=== PATIENT | female | born 1950 | race Caucasian/White ===

== ENCOUNTER 2018-03-04 18:52 | Inpatient (IN) | payer MEDICARE ==
[2018-03-04] MEDS ORDERED: NS 0.9% 1000 ML* 2,000 ML IV ONE (19:06)
[2018-03-04] MEDS ORDERED: Diltiazem IV* 5 MG/ML 5 ML VIAL (for loading dose/IV Push) (25 MG) IV SLOW PU ONE ×2 (19:10→20:59)
--- NOTE | 2018-03-04 19:13 | ED ---
Palpitations / Dysrhythmia - HPI Summary HPI Summary: This pt is a 67 y/o female, accompanied by her daughter, presenting to [facility] via EMS for sudden onset of palpitations. Pt's daughter is a nurse. Daughter reports her sister called reporting pt was unresponsive in a recliner. Pt reports she was in the recliner and started getting palpitations and became diaphoretic. Upon arriving to pt's home, daughter states pt was pale, diaphoretic, with BP of 79/50, and O2 sat of 86%. Daughter denies head strike. Pt additionally reports dizziness upon standing up. Denies dehydration. Denies chest pain, fever, nausea, vomiting, headache. Pt notes hx of rapid heart rate in the past without a diagnosis. She has seen a android programmer in [place], [place] where she had an echocardiogram. Denies hx of afib or MD. PMHx includes heart murmur, HTN. Her PCP is Dr. Morse. Vital signs while in the room at 19:05: HR is 159 bpm, BP is 117/89, O2 sat is 92% on room air. - History of Current Complaint Chief Complaint: EDDysrhythmPalp Time Seen by Provider: 03/04/18 19:02 Hx Obtained From: Patient, Family/Director Of Operations For Therapy - Daughter Onset/Duration: Sudden Onset, Still Present Timing: Constant Severity Currently: Moderate Character: Fast Aggravating: Nothing Alleviating: Nothing Associated Signs & Symptoms: Dizzy Related History: Similar Episode/Dx as - a couple of years ago but without a diagnosis - Allergy/Home Medications Allergies/Adverse Reactions: Allergies Allergy/AdvReac Type Severity Reaction Status Date / Time No Known Allergies Allergy Verified 12/15/15 14:06 Home Medications: Home Medications Cholecalciferol (Vitamin D3) [Natural Vitamin D-3] 5,000 unit PO DAILY 03/04/18 [History Confirmed 03/04/18] Hydrocodone/Acetaminophen [Hydrocodone-Acetamin 5-325 mg] 1 tab PO Q6H PRN 03/04 [History Confirmed 03/04/18] L.acidoph,Paracasei, B.lactis [Probiotic] 1 each PO DAILY 03/04/18 [History Confirmed 03/04/18] Meloxicam [Mobic] 15 mg PO DAILY 03/04/18 [History Confirmed 03/04/18] Metoprolol Succinate 100 mg PO DAILY 03/04/18 [History Confirmed 03/04/18] Metoprolol Succinate [Metoprolol Succinate ER] 25 mg PO DAILY 03/04/18 [History Confirmed 03/04/18] Mv-Mn/Folic Acid/Calcium/Vit K [Women's 50 Plus Daily Formula] 1 each PO DAILY 03/04/18 [History Confirmed 03/04/18] amLODIPine TAB* [Norvasc 5 mg TAB*] 5 mg PO DAILY 03/04/18 [History Confirmed ] PMH/Surg Hx/FS Hx/Imm Hx Endocrine/Hematology History: Denies: Hx Diabetes, Hx Thyroid Disease Cardiovascular History: Reports: Hx Hypertension, Other Cardiovascular Problems/ Disorders - heart murmur Denies: Hx Atrial Fibrillation, Hx Congestive Heart Failure, Hx Deep Vein Thrombosis, Hx Myocardial Infarction, Hx Pacemaker/ICD Respiratory History: Reports: Hx Asthma - She states that she has problems with allergies and asthma. On no Rx. Denies: Hx Chronic Obstructive Pulmonary Disease (COPD), Hx Lung Cancer, Hx Pneumonia, Hx Pulmonary Embolism GI History: Denies: Hx Gall Bladder Disease, Hx Gastrointestinal Bleed, Hx Ulcer, Hx Urosepsis History: Denies: Hx Kidney Stones, Hx Renal Disease Neurological History: Denies: Hx Dementia, Hx Migraine, Hx Seizures, Hx Transient Ischemic Attacks (TIA) Psychiatric History: Denies: Hx Anxiety, Hx Depression, Hx Schizophrenia, Hx Bipolar Disorder - Surgical History Surgery Procedure, Year, and Place: bilat knee replacements left elbow replacement toe fusion Infectious Disease History: No Infectious Disease History: Denies: Hx Clostridium Difficile, Hx Hepatitis, Hx Human Immunodeficiency Virus (HIV), Hx of Known/Suspected MRSA, Hx Shingles, Hx Tuberculosis, Hx Known/ Suspected VRE, Hx Known/Suspected VRSA, History Other Infectious Disease, Traveled Outside the [place] in Last 30 Days - Family History Known Family History: Positive: Hypertension, Diabetes - Social History Alcohol Use: Rare Substance Use Type: Reports: None Smoking Status (MU): Never Smoked Tobacco Review of Systems Constitutional: Other - Pale Positive: Fatigue, Skin Diaphoresis. Negative: Fever, Chills Positive: Palpitations. Negative: Chest Pain Negative: Vomiting, Nausea Neurological: Other - POS: dizziness Negative: Headache All Other Systems Reviewed And Are Negative: Yes Physical Exam - Summary Physical Exam Summary: Appearance: Well-appearing, moderate pain distress, well-nourished Skin: Warm, color reflects adequate perfusion, dry Head: Normal Head/Face inspection, atraumatic Eyes: Conjunctiva clear ENT: Normal inspection Neck: Supple, no nodes, no JVD Respiratory: Lungs clear, normal breath sounds, no respiratory distress Cardio: Tachycardic, systolic heart murmur on the base, pulses normal, brisk capillary refill Abdomen: Soft, nontender Bowel sounds: Present Musculoskeletal: Strength Intact/ROM intact, no calf tenderness, no edema. Psychological: Normal Neuro: Alert, muscle tone normal, no focal deficit Triage Information Reviewed: Yes Vital Signs On Initial Exam: Initial Vitals Temp Pulse Resp BP Pulse Ox 97.7 F 140 18 117/89 95 03/04/18 18:57 03/04/18 18:57 03/04/18 18:57 03/04/18 18:57 03/04/18 18:57 Vital Signs Reviewed: Yes - Lolly Coma Scale Best Eye Response: 4 - Spontaneous Best Motor Response: 6 - Obeys Commands Best Verbal Response: 5 - Oriented Coma Scale Total: 15 Diagnostics - Vital Signs Vital Signs Temp Pulse Resp BP Pulse Ox 03/04/18 18:57 97.7 F 140 18 117/89 95 - Laboratory Result Diagrams: 03/04/18 19:31 03/04/18 21:39 Lab Statement: Any lab studies that have been ordered have been reviewed, and results considered in the medical decision making process. - Radiology Chest XR Xray Interpretation: Positive (See Comments) - CHF Radiology Interpretation Completed By: ED Physician - CT Brain CT CT Interpretation: No Acute Changes - IMPRESSION: No acute intracranial pathology. Dr. Hagen has reviewed this radiology report. CT Interpretation Completed By: Radiologist Chest CTA CT Interpretation: Positive (See Comments) - IMPRESSION: 1. Diffuse bialteral groundglass and airspace opacities throughout all loes along with interlobular septal thickening. This addition to small bilateral pleural effusions, findings could represent pulmonary edema. Superimpose infectious process such as pneumonia cannot be excluded. 2. No CTA evidence of pulmonary embolism. Dr. Hagen has reviewed this report. CT Interpretation Completed By: Radiologist - EKG 18:54 Cardiac Rate: Tachycardia - at 153 bpm EKG Rhythm: Atrial Fibrillation ST Segment: Non-Specific EKG Interpretation: Nml IV CT, nml QTc, nml axis. EKG Comparison: Other - no prior to compare Re-Evaluation - Re-Evaluation First Eval Re-Evaluation Time: 19:11 Change: Unchanged Comment: HR is 153 bpm, BP is 109/63, O2 sat is 98% on 2L NC of O2. Second Eval Re-Evaluation Time: 20:01 Change: Unchanged Comment: HR is 139 bpm, BP is 103/87, O2 sat is 97% on 2L of NC O2. She denies any chest pain. Course/Dx - Course Course Of Treatment: Pt medications reviewed this visit. Pt is a 67 y/o female who presents to the ED for sudden onset of palpitations. Brain CT is negative. Chest XR read by me shows CHF. EKG shows rapid afib at 153 bpm with no prior to compare. Labs show D-dimer of 463, BNP of 275. CTA chest reveals 1. Diffuse bilateral groundglass and airspace opacities throughout all lobes along with interlobular septal thickening. This addition to small bilateral pleural effusions, findings could represent pulmonary edema. Superimpose infectious process such as pneumonia cannot be excluded. 2. No CTA evidence of pulmonary embolism. I discussed pt care with Dr. Reid, hospitalist, who accepted the pt for admission. [20:49] Dr. Reid is aware of lactic acid of 2.5. - Diagnoses Provider Diagnoses: CHF (congestive heart failure), Rapid atrial fibrillation - Physician Notifications Discussed Care Of Patient With: Constance Reid - hospitalist Time Discussed With Above Provider: 20:22 Instructed by Provider To: Admit As Inpatient - Critical Care Time Critical Care Time: 30-74 min - 30 mins Discharge - Sign-Out/Discharge Documenting (check all that apply): Patient Departure - Admit to [facility] [place] - Discharge Plan Condition: Stable Disposition: ADMITTED TO [facility] - Billing Disposition and Condition Condition: STABLE Disposition: Admitted to [facility] - Attestation Statements Document Initiated by Scribe: Yes Documenting Scribe: Nydia Fernandez Provider For Whom Scribe is Documenting (Include Credential): Dr. Veronica Hagen MD Scribe Attestation: Nydia Cohen, scribed for Dr. Veronica Hagen MD on 03/05/18 at 0429.
[2018-03-04 19:50] LABS: INR 0.9 (0.77-1.02)
[2018-03-04 19:59] LABS: EGFR Non-African American 53.6 (>60)
--- NOTE | 2018-03-04 19:59 | RAD ---
EXAM: CT Head Without Intravenous Contrast CLINICAL HISTORY: 67 years old, female; Signs and symptoms; Syncope and collapse; Additional info: Syncope, heart murmur, rapid afib TECHNIQUE: Axial computed tomography images of the head/brain without intravenous contrast. All CT scans at this facility use at least one of these dose optimization techniques: automated exposure control; mA and/or kV adjustment per patient size (includes targeted exams where dose is matched to clinical indication); or iterative reconstruction. COMPARISON: No relevant prior studies available. FINDINGS: Brain: Nonspecific hypodensities of the periventricular and deep subcortical white matter, most likely secondary to chronic small vessel ischemic change. No intracranial hemorrhage or extra-axial fluid collection. No evidence of mass effect or midline shift. [place]-white matter differentiation is normal. Ventricles: Prominence of the ventricles and sulci, most likely attributed to parenchymal volume loss. Bones/joints: Unremarkable. No acute fracture. Soft tissues: Unremarkable. Sinuses: Unremarkable as visualized. No acute sinusitis. Mastoid air cells: Unremarkable as visualized. No mastoid effusion. IMPRESSION: No acute intracranial pathology.
[2018-03-04] MEDS ORDERED: Diltiazem DRIP* 100 MG/100 ML ADDV.BAG IVPB ONE (20:03)
[2018-03-04 20:15] LABS: ABS Basophils 0.1 10^3/ul (0-0.2); ABS Eosinophils 0.1 10^3/ul (0-0.6); ABS Lymphocytes 1.9 10^3/ul (1.0-4.8); ABS Monocytes 0.6 10^3/ul (0-0.8); ABS Neutrophils 8.1 10^3/ul (1.5-7.7); ABS Nucleated RBC 0 10^3/ul; Eosinophil % 0.6 % (0-6); Hematocrit 45 % (35-47); Hemoglobin 14.9 g/dl (12.0-16.0); Lymphocyte % 18.1 % (25-47); Mean Corpuscular HGB Conc 33 g/dl (31-36); Mean Corpuscular Hemoglobin 28 pg (27-31); Mean Corpuscular Volume 82 fL (80-97); Nucleated Red Blood Cells % 0.3; Red Blood Count 5.43 10^6/ul (4.00-5.40); Red Cell Distribution Width 16 % (10.5-15); White Blood Count 10.7 10^3/ul (3.5-10.8)
[2018-03-04] MEDS ORDERED: Iodixanol* (CONTRAST) 320 MG/ML 100 ML SDV IV ONE (20:15)
[2018-03-04] MEDS ORDERED: Furosemide IV* 10 MG/ML 10 ML VIAL (100 MG) IV ONE (20:48)
[2018-03-04] MEDS ORDERED: Nitroglycerin 2% OINT* 1 GM PAK TOPICAL ONE (20:48)
--- NOTE | 2018-03-04 20:53 | RAD ---
EXAM: CT Angiography Chest With Intravenous Contrast CLINICAL HISTORY: 67 years old, female; Pain; Chest pain; Additional info: New onset rapid afib, elevated d dimer TECHNIQUE: Axial computed tomographic angiography images of the chest with intravenous contrast using pulmonary embolism protocol. All CT scans at this facility use at least one of these dose optimization techniques: automated exposure control; mA and/or kV adjustment per patient size (includes targeted exams where dose is matched to clinical indication); or iterative reconstruction. MIP reconstructed images were created and reviewed. Coronal and sagittal reformatted images were created and reviewed. CONTRAST: 81 mL of visi 320 administered intravenously. COMPARISON: No relevant prior studies available. FINDINGS: Pulmonary arteries: Unremarkable. No pulmonary embolism. Aorta: No acute findings. No thoracic aortic aneurysm. Lungs: Diffuse bilateral groundglass and airspace opacities throughout all lobes. Interlobular septal thickening is present, predominantly upper lobes. Pleural space: Small bilateral pleural effusions. No pneumothorax. Heart: Mild cardiomegaly. Mitral annular calcifications. No significant pericardial effusion. No evidence of RV dysfunction. Bones/joints: No acute fracture. No dislocation. Soft tissues: Unremarkable. Lymph nodes: Unremarkable. No enlarged lymph nodes. IMPRESSION: 1. Diffuse bilateral groundglass and airspace opacities throughout all lobes along with interlobular septal thickening. This addition to small bilateral pleural effusions, findings could represent pulmonary edema. Superimposed infectious process such as pneumonia cannot be excluded. 2. No CTA evidence of pulmonary embolism.
[2018-03-04] MEDS: Diltiazem IV VIAL* 125 MG in NS 0.9% 100 ML* 100 ML IV ONE (20:54)
[2018-03-04] MEDS ORDERED: Al Hydrox/Mg Hydrox/Simet LIQ* 30 ML UDC PO PRN (20:55)
[2018-03-04] MEDS ORDERED: Docusate CAP* 100 MG PO PRN (20:55)
[2018-03-04] MEDS ORDERED: Acetaminophen TAB* 325 MG PO PRN (20:55)
[2018-03-04] MEDS ORDERED: Senna TAB PO PRN (20:55)
[2018-03-04] MEDS ORDERED: Ondansetron INJ* 2 MG/ML VIAL IV PRN (20:55)
[2018-03-04] MEDS ORDERED: LORazepam INJ* 2 MG/ML 1 ML VIAL ONE (20:59)
[2018-03-04] MEDS ORDERED: LORazepam INJ* 2 MG/ML 1 ML VIAL IV PUSH ONE (20:59)
[2018-03-04] MEDS ORDERED: HYDROcodone/ACETAMIN 5-325 MG* 1 TAB PO PRN (21:04)
[2018-03-04] MEDS ORDERED: Albuterol HFA INHALER* 8 gm MDI INH PRN (21:14)
[2018-03-04 21:38] LABS: Urine Appearance Cloudy; Urine Blood 2+ (Negative); Urine Color Yellow; Urine Ketones Negative (Negative); Urine Protein Negative (Negative); Urine Red Blood Cell 3+(>10/hpf) (Absent); Urine Specific Gravity 1.053 (1.010-1.030); Urine Urobilinogen Negative (Negative); Urine White Blood Cell 2+(11-20/hpf) (Absent)
--- NOTE | 2018-03-04 23:06 | HP ---
CC: Dr. Feliz Morse* HISTORY AND PHYSICAL: DATE OF ADMISSION: 03/04/18 TIME OF EVALUATION: 1999 PRIMARY CARE PHYSICIAN: Feliz Morse MD CHIEF COMPLAINT: Palpitations. HISTORY OF PRESENT ILLNESS: This is a 67-year-old female with past medical history of hypertension, morbid obesity, who presents to the emergency room with having onset of palpitations around 1700. She states few years ago she had a similar episode with palpitations where they subsided on their own. At that time she went to bed and she felt fine. She has seen a mechanical maintenance foreman for preop evaluation for her knee surgery in the past and she said she had an echocardiogram done several years ago and that was unremarkable. She denies any chest pain. No shortness of breath prior to arrival. Her daughter at the bedside states she has gained about 10 pounds over the past 6 months. She does snore at night and thinks that she does have sleep apnea though she has never been tested. She drinks one cup of coffee a day. She denies any fever. No respiratory symptoms. No nausea, vomiting. She has had one episode of diarrhea in the setting of her IBS. No abdominal discomfort. She states she does try to exercise where she walks and does gets fatigued rather easily. She has chronic lower extremity swelling from her arthritis and her knee surgery in the past. In the emergency room, the patient had labs and imaging. She had 1 L of fluid, went for CTA of the chest and came back, and she was acutely short of breath, coughing, which was new for her. She sounded rhonchorous and appeared to be in acute decompensated heart failure. In the emergency room, the patient was started on diltiazem 25 mg bolus, started on a drip and referred to the hospitalist service for further evaluation, otherwise review of systems is negative. PAST MEDICAL HISTORY: 1. Hypertension, followed by Dr. Murry in [place], Cardiology. 2. Rheumatoid arthritis. 3. Degenerative disk disease. 4. History of bilateral knee surgery. 5. Irritable bowel syndrome. 6. Asthma. MEDICATIONS: 1. Amlodipine 5 mg daily. 2. Spironolactone/hydrochlorothiazide 25-25 mg daily. 3. Women's multivitamin daily. 4. Metoprolol succinate 25 mg p.o. in the morning. 5. Mobic 50 mg daily. 6. Probiotic 1 daily. 7. Erick 5/325 one every 6 hours as needed. 8. Vitamin D3 5000 units daily. ALLERGIES: No known drug allergies. FAMILY HISTORY: Mother from emphysema in the 60s. Father in the 70s with cancer. SOCIAL HISTORY: The patient lives with her daughter. She is independently with her ADLs. She does have a walker, but does not use it. No history of tobacco, alcohol, or illicit drug use. Her healthcare proxy is her daughter, Audrey. CODE STATUS: Full code. REVIEW OF SYSTEMS: A 14-point review of systems reviewed and as mentioned in the HPI, otherwise negative. PHYSICAL EXAMINATION GENERAL: Patient acutely short of breath with conversational dyspnea with a dry persistent cough. VITAL SIGNS: Temp 97.7, pulse rate 140, respiratory rate 30, oxygen saturation 95% on 2 L of O2. Blood pressure of 181/149. HEENT: Head: Normocephalic. Pupils are equal and reactive. Oropharynx: Mucous membranes moist. NECK: Supple. No lymphadenopathy. RESPIRATORY: Coarse rhonchi bilateral was audible. CARDIAC: Irregularly irregular. Rapid rhythm with a systolic murmur most prominent at the left sternal base. ABDOMEN: Positive bowel sounds, soft, nontender. Morbidly obese. EXTREMITIES: Trace pretibial edema, +1 DPs. NEUROLOGIC: Alert and oriented x3. No gross focal neurologic deficits. LABORATORY DATA: White count 10.7, hemoglobin 14.9, hematocrit 45, platelets unable to perform accurate count. Coags: INR 0.9, PTT 35, D-dimer is 463. Sodium 135, potassium not calculated. Chloride 102, bicarb 23, BUN 20, creatinine 1.03, glucose 133, lactic acid 2.5, magnesium is 2. BNP is 275. Troponin 0.01. TSH is 1.92. RADIOGRAPHIC DATA: Wet read, chest x-ray looks like prominent interstitial pulmonary edema markings. EKG shows rapid atrial fibrillation with a rate of [address] Brain CT shows no acute intracranial pathology. Chest CTA, diffuse bilateral ground glass and airspace opacities throughout all lobes along with intralobular septal thickening. This addition to small bilateral pleural effusions. Findings could represent pulmonary edema superimposed infectious process such as pneumonia could not be excluded. No CT evidence for pulmonary embolism. ASSESSMENT: This is a 67-year-old female with past medical history of morbid obesity, hypertension, presents to the emergency room with palpitations, found to be in rapid atrial fibrillation, subsequently went into acute decompensated heart failure. 1. Rapid atrial fibrillation. The etiology could be acute decompensated heart failure. She may have underlying obstructive sleep apnea. No chest pain. Her troponin was negative initially. She did respond initially to the diltiazem bolus. We are going to give another small bolus and place her on the drip. The plan is to put on anticoagulation, we will start her on Eliquis. We will keep her n.p.o. after midnight and possible cardioversion. We will repeat her potassium to make sure her potassium is normal level. If she does not have a cardioversion with transesophageal echocardiogram, recommend ordering a transthoracic echo to evaluate. 2. Acute decompensated heart failure. The patient's initial chest x-ray did show pulmonary edema. She did get fluid in the emergency room and subsequently went into acute decompensated heart failure. The patient was given diltiazem drip. We tried her on CPAP, but is very anxious, gave her a small dose of Ativan, nitro paste and Lasix [address] her on the ICU for further monitoring and follow up with further cardiology recommendations. 3. Chronic medical problems: Hypertension. I am going to hold her amlodipine, spironolactone, hydrochlorothiazide. We will restart metoprolol in the morning if her blood pressures allow in the setting of being on the diltiazem drip. 4. Rheumatoid arthritis: We will hold her Mobic for now in the setting of being started on Eliquis. 5. Asthma: We will place her on albuterol inhaler as needed. No acute exacerbation at this time. 6. FEN: Heart healthy, low salt diet. N.p.o. after midnight. 7. DVT prophylaxis: The patient scores high risk. She will be put on Eliquis. 8. Code status: Full code. PATIENT TIME: Greater than 60 minutes was spent during the history and physical , more than half the time spent in direct patient contact and critical care time. [id number]/CPS #: [id number] MTDD
[2018-03-04] MEDS: Apixaban* 5 MG TAB PO SCH (23:42)
[2018-03-05] MEDS ORDERED: Digoxin IV* 0.5 MG/2 ML AMP (0.25 MG/ML) IV SLOW PU ONE (00:19)
[2018-03-05] MEDS: Diltiazem IV VIAL* 125 MG in NS 0.9% 100 ML* 100 ML IV ONE (05:55)
[2018-03-05 06:29] LABS: ABS Basophils 0 10^3/ul (0-0.2); ABS Eosinophils 0 10^3/ul (0-0.6); ABS Lymphocytes 1.6 10^3/ul (1.0-4.8); ABS Monocytes 0.5 10^3/ul (0-0.8); ABS Neutrophils 8.3 10^3/ul (1.5-7.7); ABS Nucleated RBC 0 10^3/ul; Eosinophil % 0.1 % (0-6); Hematocrit 44 % (35-47); Hemoglobin 14.4 g/dl (12.0-16.0); Lymphocyte % 14.9 % (25-47); Mean Corpuscular HGB Conc 33 g/dl (31-36); Mean Corpuscular Hemoglobin 27 pg (27-31); Mean Corpuscular Volume 82 fL (80-97); Nucleated Red Blood Cells % 0.1; Red Blood Count 5.34 10^6/ul (4.00-5.40); Red Cell Distribution Width 16 % (10.5-15); White Blood Count 10.5 10^3/ul (3.5-10.8)
[2018-03-05 06:55] LABS: EGFR Non-African American 52.4 (>60)
[2018-03-05 07:01] LABS: Platelet Count Platelets clumped. 10^3/ul (150-450)
[2018-03-05] MEDS: Apixaban* 5 MG TAB PO SCH ×2 (10:55→21:33)
[2018-03-05] MEDS: Metoprolol Succinate XL TAB* 25 MG PO SCH ×2 (10:59→14:42)
[2018-03-05] MEDS: Metoprolol Succinate XL TAB* 100 MG PO SCH ×2 (11:00→14:42)
--- NOTE | 2018-03-05 11:13 | PN ---
Subjective Date of Service: 03/05/18 Interval History: Patient seen and examined at bedside. Denies fever, chills, shortness of breath , chest discomfort, N/V/D. Pt states that she continues to have intermittent palpitations. She feels like she may have had an episode of afib a few years ago that resolved on its own. Family History: Unchanged from Admission Social History: Unchanged from Admission Past Medical History: Unchanged from Admission Objective Active Medications: Acetaminophen (Tylenol Tab*) 650 mg PO Q4H PRN Reason: FEVER/PAIN Hydrocodone Bitart/Acetaminophen ([place] 5-325 Tab*) 1 tab PO Q6H PRN Reason: PAIN Al Hydrox/Mg Hydrox/Simethicone (Maalox Plus*) 30 ml PO Q6H PRN Reason: INDIGESTION Albuterol (Ventolin Hfa Inhaler*) 2 puff INH Q4H PRN Reason: SOB/WHEEZING Apixaban (Eliquis*) 5 mg PO BID SHANNON Docusate Sodium (Colace Cap*) 100 mg PO BID PRN Reason: CONSTIPATION Diltiazem HCl 125 mg/ Sodium (Chloride) 125 mls @ 5 mls/hr IV ED ONCE ONE; Protocol Stop: 03/05/18 21:59 Metoprolol Succinate (Toprol Xl Tab*) 25 mg PO DAILY SHANNON Metoprolol Succinate (Toprol Xl Tab*) 100 mg PO DAILY SHANNON Ondansetron HCl (Zofran Inj*) 4 mg IV Q4H PRN Reason: NAUSEA/VOMITING Senna (Senokot Tab*) 1 tab PO BID PRN Reason: CONSTIPATION Vital Signs - 8 hr 03/05/18 03/05/18 03/05/18 02:14 02:15 02:18 Temperature Pulse Rate 104 122 129 Respiratory 28 22 28 Rate Blood Pressure 156/129 168/141 102/83 (mmHg) O2 Sat by Pulse 96 96 96 Oximetry 03/05/18 03/05/18 03/05/18 02:30 02:45 03:00 Temperature Pulse Rate 126 120 117 Respiratory 40 27 28 Rate Blood Pressure 123/98 120/108 (mmHg) O2 Sat by Pulse 97 97 96 Oximetry 03/05/18 03/05/18 03/05/18 03:01 03:15 03:32 Temperature Pulse Rate 110 116 119 Respiratory 24 32 34 Rate Blood Pressure 109/81 144/123 98/83 (mmHg) O2 Sat by Pulse 95 97 96 Oximetry 03/05/18 03/05/18 03/05/18 03:45 03:53 04:00 Temperature 96.9 F Pulse Rate 131 118 Respiratory 21 21 Rate Blood Pressure 96/76 106/81 (mmHg) O2 Sat by Pulse 96 97 Oximetry 03/05/18 03/05/18 03/05/18 04:15 04:30 04:46 Temperature Pulse Rate 122 104 107 Respiratory 23 21 26 Rate Blood Pressure 97/74 94/71 88/60 (mmHg) O2 Sat by Pulse 96 95 96 Oximetry 03/05/18 03/05/18 03/05/18 05:00 05:15 05:31 Temperature Pulse Rate 114 102 109 Respiratory 23 24 28 Rate Blood Pressure 105/77 109/80 98/72 (mmHg) O2 Sat by Pulse 96 96 96 Oximetry 03/05/18 03/05/18 03/05/18 05:33 05:45 06:00 Temperature Pulse Rate 108 107 116 Respiratory 30 27 34 Rate Blood Pressure 111/87 87/67 106/89 (mmHg) O2 Sat by Pulse 96 96 96 Oximetry 03/05/18 03/05/18 03/05/18 06:16 06:31 06:45 Temperature Pulse Rate 131 117 101 Respiratory 27 30 25 Rate Blood Pressure 95/80 97/84 71/62 (mmHg) O2 Sat by Pulse 94 93 94 Oximetry 03/05/18 03/05/18 03/05/18 06:54 07:00 07:02 Temperature Pulse Rate 102 87 105 Respiratory 41 25 21 Rate Blood Pressure 99/71 81/64 (mmHg) O2 Sat by Pulse 94 95 96 Oximetry 03/05/18 03/05/18 03/05/18 07:16 07:43 07:46 Temperature Pulse Rate 113 115 114 Respiratory 20 29 30 Rate Blood Pressure 94/69 131/105 106/68 (mmHg) O2 Sat by Pulse 95 96 96 Oximetry 03/05/18 03/05/18 03/05/18 08:00 08:16 08:33 Temperature 97 F Pulse Rate 106 125 120 Respiratory 21 19 31 Rate Blood Pressure 118/84 112/99 86/65 (mmHg) O2 Sat by Pulse 97 97 96 Oximetry 03/05/18 03/05/18 03/05/18 08:45 09:00 09:16 Temperature Pulse Rate 136 120 127 Respiratory 19 28 30 Rate Blood Pressure 90/72 111/64 100/69 (mmHg) O2 Sat by Pulse 96 96 96 Oximetry Oxygen Devices in Use Now: Nasal Cannula - 2L Appearance: NAD, sitting up in bed Ears/Nose/Mouth/Throat: Mucous Membranes Moist Respiratory: Symmetrical Chest Expansion and Respiratory Effort, Clear to Auscultation Cardiovascular: - - Heart rate irregular. Systolic murmur heard best at the left sternal border Abdominal: NL Sounds; No Tenderness; No Distention Extremities: No Edema Skin: No Rash or Ulcers Neurological: Alert and Oriented x 3, NL Muscle Strength and Tone Lines/Tubes/Other Access: Clean, Dry and Intact Peripheral IV - site benign Nutrition: Taking PO's Result Diagrams: 03/05/18 05:34 03/05/18 05:34 Microbiology and Other Data: Microbiology 03/04/18 23:00 Nasal Screen MRSA (PCR) - Final Nasal Mrsa Not Detected Assess/Plan/Problems-Billing Assessment: Ms. Yost is a 67 yo female with PMH significant for morbid obesity, HTN, RA, and asthma who presented to the emergency room with complaints of palpitations and was found to be in rapid afib and went into acute decompenstated HF. - Patient Problems (1) Atrial fibrillation with RVR Code(s): I48.91 - UNSPECIFIED ATRIAL FIBRILLATION SNOMED Code(s): 929378451106952 Comment: - HR continues to be 100-130's - TTE pending - Cardiology consult, input appreciated - Plan for cardioversion later today - Continue cardizem gtt and eliquis - Resume metoprolol after cardioversion (2) Acute decompensated heart failure Code(s): I50.9 - HEART FAILURE, UNSPECIFIED SNOMED Code(s): 02893279 Comment: - Improving - Cardiology consult, input appreciated (3) HTN (hypertension) Code(s): I10 - ESSENTIAL (PRIMARY) HYPERTENSION SNOMED Code(s): 26789656 Comment: - SBP 80-120's - Continue to hold amlodipine, HCTZ, and spironolactone - Continue metoprolol (4) Rheumatoid arthritis Code(s): M06.9 - RHEUMATOID ARTHRITIS, UNSPECIFIED SNOMED Code(s): 50467721 Comment: - Hold mobic (5) Asthma Code(s): J45.909 - UNSPECIFIED ASTHMA, UNCOMPLICATED SNOMED Code(s): 521648361 Comment: - No signs of acute exacerbation at this time - Continue albuterol PRN (6) DVT prophylaxis Code(s): CPD8411 - SNOMED Code(s): 948322051 Comment: - Eliquis (7) Full code status Code(s): Z78.9 - OTHER SPECIFIED HEALTH STATUS SNOMED Code(s): 701389622 Status and Disposition: Inpatient. Discharge to home when medically stable, Pt is awaiting cardioversion later today. Attending: Heather Mendoza
[2018-03-05] MEDS ORDERED: Naloxone* 0.4 MG/ML 1 ML VIAL ONE (12:04)
[2018-03-05] MEDS ORDERED: Flumazenil* 0.1 MG/ML 5 ML MDV ONE (12:04)
[2018-03-05] MEDS ORDERED: fentaNYL* 50 MCG/ML 2 ML VIAL (100 MCG VIAL) ONE (12:04)
[2018-03-05] MEDS ORDERED: Midazolam* 1 MG/ML 10 ML VIAL (10 MG) ONE (12:05)
[2018-03-05] MEDS ORDERED: Amiodarone 150 MG IVPREMIX* 150 MG/100 ML BAG IV ONE (12:29)
[2018-03-05] MEDS ORDERED: Amiodarone 360 MG IVPREMIX* 360 MG/200 ML BAG IV ONE (12:30)
--- NOTE | 2018-03-05 16:01 | ECHO ---
Amended Report Patient: DEVIN BREWER [facility] [place] Rec#: [id number] : 1950 Date: 03/05/2018 Age: 67y Height: 150 cm / 59.1 in Weight: 94.9 kg / 209.2 lbs Sex: F BSA: 1.9 Room#: ICU 11 Admit Date#: 03/04/2018 Type: Inpatient Referring: Edin Gupta MD Reading: Edin Gupta MD Machine Adjuster: Adri Clemens RN RDCS CC: Feliz Morse MD Transthoracic Echocardiogram Indication: Atrial fibrillation, murmur BP: 100/69 HR: 118 Rhythm: A-Fib Findings History: HTN, asthma, RA, morbid obesity Technical Comments: The study is technically limited due to patient body habitus. Left Ventricle: The left ventricular chamber size is decreased. Moderate to severe concentric left ventricular hypertrophy is observed. There is evidence of a hypertrophic cardiomyopathy. There is turbulence in the LV outflow tract with high velocities and dagger profiles. The peak velocity through the LVOT and aortic valve with CW is at least 5m/sec. Global left ventricular wall motion and contractility are within normal limits. The left ventricle appears hyperdynamic. The estimated ejection fraction is greater than 65%. The assessment of diastolic function is non-diagnostic. Left Atrium: The left atrium is severely dilated. Right Ventricle: The right ventricular cavity size is normal. The right ventricular global systolic function is normal. Right Atrium: The right atrial cavity size is normal. Aortic Valve: The aortic valve leaflets are moderately thickened. Systolic excursion of the aortic valve cusps is reduced. There is aortic annular calcification. There is no evidence of aortic regurgitation. It is difficult to evaluate the presence and degree of aortic stenosis by Doppler exam due to the high velocities found in the LVOT. Mitral Valve: Severe mitral annular calcification present. The mitral valve leaflets are mildly thickened. There is mild mitral regurgitation. There is mild mitral stenosis. Tricuspid Valve: The tricuspid valve leaflets are normal. There is mild tricuspid regurgitation. There is evidence of severe pulmonary hypertension. Pulmonic Valve: The pulmonic valve appears normal. There is a trace pulmonic regurgitation. There is no pulmonic stenosis. Pericardium: There is no significant pericardial effusion. A pericardial fat pad is visualized. Aorta: There is no dilatation of the ascending aorta. There is no dilatation of the aortic arch. There is no dilation of the aortic root. Pulmonary Artery: The main pulmonary artery is not well visualized. Venous: The venous system is not well visualized. The inferior vena cava is not visualized. Summary: There was not any prior study for comparison. Conclusions Moderate to severe concentric left ventricular hypertrophy is observed. There is evidence of a hypertrophic cardiomyopathy. There is turbulence in the LV outflow tract with high velocities and dagger profiles. The peak velocity through the LVOT and aortic valve with CW is at least 5m/sec. Global left ventricular wall motion and contractility are within normal limits. The left ventricle appears hyperdynamic. The estimated ejection fraction is greater than 65%. The left atrium is severely dilated. The right ventricular global systolic function is normal. The aortic valve leaflets are moderately thickened. There is no evidence of aortic regurgitation. It is difficult to evaluate the presence and degree of aortic stenosis by Doppler exam due to the high velocities found in the LVOT. Severe mitral annular calcification present. There is mild mitral regurgitation. There is mild mitral stenosis. There is mild tricuspid regurgitation. There is evidence of severe pulmonary hypertension. There is no significant pericardial effusion. Measurements Name Value Normal Range RVDdMajor (2D) 2.5 cm (2.2 - 4.4) RAd ISD 4CH 4.2 cm (3.4 - 4.9) RA (A4C)W 2.6 cm (2.9 - 4.6) IVSd (2D) 2.1 cm (0.6 - 1) LVPWd (2D) 1.4 cm (0.6 - 1) LVIDd (2D) 2.9 cm (3.6 - 5.4) Aortic Annulus 1.9 cm (1.4 - 2.6) Ao root diameter (2D) 2.6 cm (2.1 - 3.5) Ascending Ao 2.8 cm (2.1 - 3.4) Aortic arch 2.4 cm (1.8 - 3.4) LA dimension (AP) 2D 5.3 cm (2.3 - 3.8) LAd ISD 4CH 6.5 cm (2.9 - 5.3) LA ISD 4CH W 5.8 cm (2.5 - 4.5) Name Value Normal Range LA ESV BP (A/L) index 69 ml/m2 - Name Value Normal Range MV E-wave Vmax 2.1 m/sec - MV deceleration time 178 msec - LV lateral e' Vmax 0.07 m/sec - LV E:e' lateral ratio 30 ratio - Name Value Normal Range AV Vmax 3.5 m/sec - AV VTI 58.1 cm - AV peak gradient 49 mmHg - AV mean gradient 35 mmHg - LVOT diameter 2 cm - GEOVANNA Vmax 0.77 m/sec - Name Value Normal Range MV Vmax 2.5 m/sec - MV VTI 36.5 cm - MV peak gradient 25 mmHg - MV mean gradient 10 mmHg - MV PHT 56 msec - Name Value Normal Range TR Vmax 4 m/sec - TR peak gradient 64 mmHg - RAP 8 mmHg - RVSP 72 mmHg - Name Value Normal Range PV Vmax 0.74 m/sec -
[2018-03-05] MEDS: Amiodarone 360 MG IVPREMIX* 360 MG/200 ML BAG IV ONE ×2 (20:04→20:05)
[2018-03-05] MEDS: Amiodarone 360 MG IVPREMIX* 360 MG/200 ML BAG IV SCH (20:05)
--- NOTE | 2018-03-06 01:23 | CARD ---
CC: Dr. Win Murry, [place], [place].* CARDIOVERSION REPORT: DATE OF PROCEDURE: 03/05/18. PROCEDURE: Cardioversion. INDICATION: Atrial fibrillation. 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 The patient has just undergone an echocardiogram which showed normal LV function with left ventricular hypertrophy and significant left ventricular outflow tract obstruction. Cardioversion was recommended. DESCRIPTION OF PROCEDURE: The patient was in a fasting state. Informed consent had been obtained prior to the procedure. All labs were reviewed. The patient was started on Eliquis yesterday. The patient was given 4 mg of Versed and 50 mcg of fentanyl for conscious sedation. The patient was cardioverted with 150 joules of synchronized biphasic energy. The patient converted to normal sinus rhythm. IMPRESSION: Successful cardioversion to normal sinus rhythm. The patient will be started on IV amiodarone for 24 hours and then p.o. amiodarone. The patient will continue on Eliquis and other medications. The patient will follow up with Dr. Murry. [id number]/[facility] #: [id number] [facility]
[2018-03-06 06:49] LABS: ABS Basophils 0.1 10^3/ul (0-0.2); ABS Eosinophils 0.1 10^3/ul (0-0.6); ABS Lymphocytes 1.7 10^3/ul (1.0-4.8); ABS Monocytes 0.5 10^3/ul (0-0.8); ABS Neutrophils 4.2 10^3/ul (1.5-7.7); ABS Nucleated RBC 0 10^3/ul; Eosinophil % 1.4 % (0-6); Hematocrit 40 % (35-47); Hemoglobin 13.2 g/dl (12.0-16.0); Lymphocyte % 26.4 % (25-47); Mean Corpuscular HGB Conc 33 g/dl (31-36); Mean Corpuscular Hemoglobin 27 pg (27-31); Mean Corpuscular Volume 82 fL (80-97); Nucleated Red Blood Cells % 0.1; Red Blood Count 4.85 10^6/ul (4.00-5.40); Red Cell Distribution Width 16 % (10.5-15); White Blood Count 6.5 10^3/ul (3.5-10.8)
[2018-03-06] MEDS: Amiodarone 360 MG IVPREMIX* 360 MG/200 ML BAG IV SCH (07:02)
[2018-03-06 07:45] LABS: Platelet Count Platelets clumped. 10^3/ul (150-450)
[2018-03-06] MEDS ORDERED: Pneumococcal *Vac Polyvalent 0.5 ML VIAL IM ONE (09:00)
[2018-03-06] MEDS ORDERED: Amiodarone TAB* 200 MG PO SCH (09:00)
[2018-03-06] MEDS: Apixaban* 5 MG TAB PO SCH (09:08)
[2018-03-06] MEDS: Metoprolol Succinate XL TAB* 25 MG PO SCH (09:08)
[2018-03-06] MEDS: Metoprolol Succinate XL TAB* 100 MG PO SCH (09:08)
[2018-03-06 10:04] VITALS: BP 159/76
--- NOTE | 2018-03-06 14:59 | PN ---
Subjective Date of Service: 03/06/18 - CC: SOB Interval History: The patient slept well, no orthopnea or PND. She has walked once in ICU, felt BROWN, not at her prior baseline. The patient (and her daughter) felt her afib onset was acute, sudden onset. She denied any increase in Mobic or steroids for RA. She sees Dr Gallegos in [facility] for longstanding murmur, but was vague about his findings. Medications Active Medications: Acetaminophen (Tylenol Tab*) 650 mg PO Q4H PRN PRN Reason: FEVER/PAIN Hydrocodone Bitart/Acetaminophen ([place] 5-325 Tab*) 1 tab PO Q6H PRN PRN Reason: PAIN Al Hydrox/Mg Hydrox/Simethicone (Maalox Plus*) 30 ml PO Q6H PRN PRN Reason: INDIGESTION Albuterol (Ventolin Hfa Inhaler*) 2 puff INH Q4H PRN PRN Reason: SOB/WHEEZING Amiodarone HCl (Cordarone Tab*) 200 mg PO BID [facility] Last Admin: 03/06/18 09:08 Dose: 200 mg Apixaban (Eliquis*) 5 mg PO BID [facility] Last Admin: 03/06/18 09:08 Dose: 5 mg Docusate Sodium (Colace Cap*) 100 mg PO BID PRN PRN Reason: CONSTIPATION Metoprolol Succinate (Toprol Xl Tab*) 25 mg PO DAILY [facility] Last Admin: 03/06/18 09:08 Dose: 25 mg Metoprolol Succinate (Toprol Xl Tab*) 100 mg PO DAILY [facility] Last Admin: 03/06/18 09:08 Dose: 100 mg Ondansetron HCl (Zofran Inj*) 4 mg IV Q4H PRN PRN Reason: NAUSEA/VOMITING Senna (Senokot Tab*) 1 tab PO BID PRN PRN Reason: CONSTIPATION Objective Vital Signs: Temp Pulse Resp BP Pulse Ox 97.9 F 73 18 159/76 96 03/06/18 12:00 03/06/18 10:01 03/06/18 10:01 03/06/18 10:01 03/06/18 10:01 Oxygen Devices in Use Now: Nasal Cannula Appearance: morbidly obese somewhat older woman, seated on bed in [facility]. Eyes: PERRLA Ears/Nose/Mouth/Throat: Clear Oropharnyx - facial asymitry with left eyebrow higher than right (chronic per pt and daughter), Mucous Membranes Moist Neck: NL Appearance and Movements; NL JVP, Trachea Midline, No Thyroid Enlargement, Masses Respiratory: Symmetrical Chest Expansion and Respiratory Effort, Clear to Auscultation Cardiovascular: RRR - 3-4/6 harsh mireles systolic murmur LUSB, radiates across the precordiaum, no delay or diminished carotid pulse, +S2. Abdominal: - - obese, normal bowel sounds, soft Extremities: - - mild edema and thick from obesity. Skin: No Rash or Ulcers, No Nodules or Sclerosis Neurological: Alert and Oriented x 3, NL Sensation Lines/Tubes/Other Access: Clean, Dry and Intact Peripheral IV Laboratory Results: 03/06/18 06:35 03/05/18 05:34 INR (Anticoag Therapy) 0.90 (0.77-1.02) 03/04/18 19:31 APTT 34.9 seconds (26.0-36.3) 03/04/18 19:31 Total Bilirubin 0.60 mg/dL (0.2-1.0) 03/04/18 19:31 AST 17 U/L (13-39) 03/04/18 21:39 ALT 8 U/L (7-52) 03/04/18 19:31 Alkaline Phosphatase 100 U/L (34-104) 03/04/18 19:31 CK-MB (CK-2) 1.8 ng/mL (0.6-6.3) 03/04/18 19:31 B-Natriuretic Peptide 275 pg/mL (-100) H 03/04/18 19:31 Total Protein 7.9 g/dL (6.4-8.9) 03/04/18 19:31 Albumin 4.0 g/dL (3.2-5.2) 03/04/18 19:31 Globulin 3.9 g/dL (2-4) 03/04/18 19:31 Albumin/Globulin Ratio 1.0 (1-3) 03/04/18 19:31 Triglycerides 150 mg/dL 03/05/18 05:34 Cholesterol 176 mg/dL 03/05/18 05:34 LDL Cholesterol 103 mg/dL 03/05/18 05:34 HDL Cholesterol 43.1 mg/dL 03/05/18 05:34 TSH 1.92 mcIU/mL (0.34-5.60) 03/04/18 19:31 03/04/18 03/04/18 03/04/18 19:31 21:39 22:30 Troponin I 0.01 0.02 0.03 03/05/18 00:50 Troponin I 0.03 Diagnostic Imaging: Severe hypertrophy of the LV, LVOT obstruction, significant, AV leaflets thickened, PA pr 72 mmHg. EKG Data: Monitor: NSR. ECG: NSR, LVH with ST depression lateral leads c/w repolarization changes of LVH. Assessment/Plan 67 yo female admitted with new Afib, RVR and CHF now s/p PAUL guided CV, in NSR overnight. Echo shows hypertrophic cardiomyopathy, resting LVOT obstruction and severe elevation in PA pressures. +BROWN. AFib: for now continue with Amiodarone, 400 mg/day x [address]pta, then 200 mg/day. Follow up iw Dr Gallegos ([place] director transition). Hypertrophic CM: Symetrical but marked LVH. -Avoid overdehydration and after load as this will increase the LVOT gradient. -Keep sinus rates low with beta blockers (and amiodarone will lower rate as well). Pulmonary HTN: -Likely multifactorial from LVH/diastolic dysfunction, LVOT obstruction, afib to worsened diastolic function. -Needs to stay in sinus rhythm, careful fluid balance as above. -I would stay off NSAIDs if able, with RA may need to get follow up evaluation with Rheumatology to see if meds other then NSAIDs for her. Complex cardiac anatomy and records from [place] not available to compare. As in sinus rhythm, clear lungs OK to discharge to home, but recommend early follow up with Dr Gallegos.
--- NOTE | 2018-03-06 18:00 | RAD ---
Indication: Rapid atrial fibrillation. Single frontal view of the chest performed at 1955 hours was reviewed. No prior study is available for comparison. Cardiomegaly is noted. Interstitial edema consistent with vascular congestion is noted. No definite pneumonia is noted. IMPRESSION: CARDIOMEGALY WITH INTERSTITIAL EDEMA SUSPICIOUS FOR CHF. R0
--- NOTE | 2018-03-07 05:54 | DS ---
CC: Dr. Feliz Morse; Dr. Granados; Dr. Harris; Dr. Gupta * DISCHARGE SUMMARY: DATE OF ADMISSION: 03/04/18. DATE OF DISCHARGE: 03/06/18. PRIMARY CARE PROVIDER: Dr. Feliz Morse. HOME HEALTH CARE CASE MANAGER: Dr. Granados, in [facility]. DISCHARGE DIAGNOSES: 1. Acute decompensated diastolic congestive heart failure due to atrial fibrillation with rapid ventricular response. 2. Status post cardioversion performed by Dr. Gupta on 03/05/18, with successful resolution of sinus rhythm. SECONDARY DIAGNOSES: 1. Documented on echocardiogram with hypertrophic cardiomyopathy. 2. History of hypertension. 3. History of rheumatoid arthritis. 4. Degenerative disc disease. 5. History of bilateral knee surgeries. 6. History of irritable bowel syndrome. 7. History of "heart murmur." MEDICATIONS AT DISCHARGE: Include amiodarone 200 mg b.i.d. for 7 days, then followed with amiodarone 200 mg daily. The remaining medications are unchanged and include: 1. Amlodipine 5 mg daily. 2. Vitamin D3 of 5000 units daily. 3. Hydrocodone and acetaminophen on a p.r.n. basis. 4. Probiotics one tablet daily. 5. Meloxicam 50 mg daily. The patient was advised to talk with her gas burner operator about switching the medication when she's in atrial fibrillation. 6. Metoprolol succinate, a total of 125 mg daily. 7. Folic acid and vitamin K one tablet daily. 8. Spironolactone/hydrochlorothiazide 25/25 one tablet daily. 9. Eliquis 5 mg b.i.d., which is also a new medication. LABORATORY DATA AND STUDIES PERFORMED DURING THE HOSPITAL STAY: Included: On , white blood cell count of 6.5, hemoglobin 13.2, hematocrit 40, and platelets were clumped. D-dimer on admission was 463. ABG on admission showed pH of 7.37, pCO2 of 36, pO2 of 97, bicarb 21. Sodium 137, potassium 4.7, chloride 104, carbon dioxide 23, BUN 21, creatinine 1.05. Liver function tests on admission were unremarkable. Fasting lipid profile showed triglycerides 160, cholesterol total 176, LDL 103, and HDL 43.1. The patient's TSH was 1.91 on admission. Magnesium was 2.0 at admission. The patient had urine cultures obtained that showed 25,000 to 50,000 colonies of E. coli and 10,000 to 25,000 colonies of "normal camryn." The patient was asymptomatic from UTI standpoint; and, due to low number of E. coli colonies cultured, treatment was not recommended. PROCEDURES PERFORMED DURING THE HOSPITAL STAY: Included cardioversion performed by Dr. Gupta on 03/05/18. CT angiogram of the chest obtained on 03/04/18, impression: "Diffuse bilateral ground-glass opacities throughout the lobes along with the interlobular septal thickening." In addition, small bilateral ____ effusion findings could represent pulmonary edema. Evidence of post-infectious process such as pneumonia cannot be excluded. No CTA evidence of PE. Brain CT, impression: "No acute intracranial pathology." Transthoracic echocardiogram obtained on 03/06/18 showed EF of 55% or above. There was evidence of hypertrophic cardiomyopathy with turbulence at the LV outflow tract with high velocities and profile. The LVOT of aortic valve is at least 5 meters per second. The left ventricular wall motion contractility was within normal limits. The aortic valve was difficult to evaluate the present degree of aortic stenosis due to the high velocities found at LVOT. There was evidence of severe pulmonary hypertension. HOSPITALIZATION COURSE: Ariadna Yost is a 67-year-old female with a history of rheumatoid arthritis and hypertension who presented to the hospital with complaints of shortness of breath and was noted to be a new atrial fibrillation with rapid ventricular response. The patient was successfully cardioverted to sinus rhythm on 03/05/18. Her echo showed severe pulmonary hypertension and possibility of moderate LVOT obstruction with hypertrophic cardiomyopathy. Dr. Gupta saw the patient in consultation and Dr. Harris followed. The recommendation was for the patient to be treated with IV amiodarone post- cardioversion, and then kept on amiodarone at 200 mg twice a day for 7 days and 200 mg daily. The patient is to follow up with Dr. Granados as outpatient. The patient was also noted to be in acute diastolic CHF that was treated initially. At the time of discharge, she did not appear to be in CHF anymore, but she was still mildly hypoxemic with oxygen saturation of 88% while on room air and ambulating. At that point, the patient was offered to stay in the hospital for further management of hypoxemia. The patient preferred to be discharged home with oxygen. It is also possible that with her severe pulmonary hypertension, she may require oxygen oysterman. She is to follow up with her primary care provider in approximately 4 to 7 days after discharge. The patient is also recommended to follow up with Dr. Granados in approximately 1 to 2 weeks. PHYSICAL EXAMINATION AT THE TIME OF DISCHARGE: Blood pressure 169/76, heart rate 65 and regular, respiratory rate 24, oxygen saturation 97% on 2 liters of oxygen via nasal cannula, temperature 97.9. General: The patient is a very pleasant 67- year-old obese female with a BMI of 41, who is in no acute distress. Alert, awake, and oriented x3. HEENT: Head: Atraumatic, normocephalic. Eyes: Pupils are equal, round, and reactive to light and accommodation. Oropharynx clear. Mucosa moist. Neck: Supple. No JVD. No bruit bilaterally. Cardiovascular: Regular rate and rhythm with 2/6 systolic ejection murmur. Lungs clear to auscultation of the right upper sternal border bilaterally carotid. Respiratory: Clear to auscultation bilaterally. Abdomen: Soft, nontender. Bowel sounds are present in all quadrants. Extremities: There is +1 pitting pedal edema. Pulses are +2 bilaterally. There is no clubbing or cyanosis. Neuro Evaluation: Speech is clear. Cranial nerves II through XII are grossly intact. Motor strength is 5/5 bilaterally. Please note that this is a short summary of the patient's hospitalization. Please refer to further medical records for details. TIME SPENT: Approximately 45 minutes were spent on the patient's discharge. [id number]/[facility] #: [id number] [facility]
== END 2018-03-06 15:45 | disposition home or self-care (01) | DRG 309 ==
LOC: ED 18:52 → ICU 20:55
PROVIDERS: ADMIT Pediatrics; ATTEND Internal Medicine
PROC: 5A2204Z Restoration of Cardiac Rhythm, Single (ICD-10-PCS; principal; 2018-03-04)
PROC: B24BZZ4 Ultrasonography of Heart with Aorta, Transesophageal (ICD-10-PCS; 2018-03-04)
DX: I48.91 Unspecified atrial fibrillation (principal); Z68.41 Body mass index [BMI] 40.0-44.9, adult; Z96.622 Presence of left artificial elbow joint; I42.1 Obstructive hypertrophic cardiomyopathy; I10 Essential (primary) hypertension; J45.909 Unspecified asthma, uncomplicated; I50.9 Heart failure, unspecified; I27.20 Pulmonary hypertension, unspecified; E66.01 Morbid (severe) obesity due to excess calories; M06.9 Rheumatoid arthritis, unspecified; M19.90 Unspecified osteoarthritis, unspecified site; K58.9 Irritable bowel syndrome, unspecified; Z96.653 Presence of artificial knee joint, bilateral; Z98.1 Arthrodesis status; Z82.49 Family history of ischemic heart disease and other diseases of the circulatory system; Z83.3 Family history of diabetes mellitus; Z83.6 Family history of other diseases of the respiratory system; Z80.9 Family history of malignant neoplasm, unspecified
CPT/HCPCS: 36415; 36600; 70450; 71045; 71275; 80048; 80053; 80061; 81003; 81015; 82550; 82553; 82803; 83605; 83735; 83880; 84436; 84443; 84484; 85025; 85379; 85610; 85730; 87077; 87086; 87186; 87641; 90686; 90732; 92960; 93005; 93306; 99156; 99284; A9270-GY; J0282; J1160; J1940; J2060; J2250; J2310; J3010; Q9967

== ENCOUNTER 2018-11-18 11:44 | Emergency (ER) | payer MEDICARE ==
--- OUTSIDE RECORDS SUMMARY | 2018-11-18 11:51 | XMS REPORT | Continuity of Care Document ---
:1950 External Reference #:[id number] Author Name Michaela Chiang Care Team Providers Name Role Phone Feliz Morse MD Primary Care Physician Unavailable Payers Date Identification Numbers Payment Provider Subscriber Policy Number: [id number] Medicare Blue o Ariadna Yost PayID: [id number] [address] [address] [place] [address] Effective: 2017 Policy Number: [id number] Medicare Blue Ppo Ariadna Yost Expires: 2018 PayID: [id number] [address] [address] [place] [id number] Advance Directives Description No Information Available Problems Active Problems Provider Date Decompensated cardiac failure Constance Reid DO Onset: 03/04/2018 Atrial fibrillation Constance DO Jeanette Onset: 03/04/2018 Rheumatoid arthritis Lanie Thornton NP Onset: 03/05/2018 Hypertensive heart disease with Lanie Thornton NP Onset: 2017 heart failure Acute diastolic heart failure Eri Alvarez M.D. 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 Tobacco Use Start: Unknown Never Smoked Cigarettes Tobacco Use Start: Unknown Secondhand smoke As a child, and an adult (father, ex-) Smoking Status Reviewed: 10/21/18 Secondhand smoke As a child, and an adult (father, ex-) ETOH Use Denies alcohol use Tobacco Use Start: Unknown Patient has never smoked Recreational Drug Use Denies Drug Use Exercise Type/Frequency Exercises regularly Exercise Type/Frequency Walks 3 times a week Allergies, Adverse Reactions, Alerts Description No Known Drug Allergies Medications Active Medications SIG Qnty Indications Ordering Provider Date Metoprolol Succinate 1 by mouth every Unknown ER day 25mg Tablets ER 24HR Metoprolol Succinate 1 by mouth every Unknown ER day 100mg Tablets ER 24HR Spironolactone/Hydroch 1 tablet po daily Unknown lorothiazide 25-25mg Tablets Amiodarone HCL 1 by mouth every Unknown 200mg day Tablets Amlodipine Besylate 1 by mouth every Unknown 2.5mg day Tablets History Medications Hydroxychloroquine Sulfate 2 tab by mouth 60tabs Keo Maria, 2010 - 200mg every day M.D. 05/21/2018 Tablets Triamterene/Hydrochlorothia 1 po qam 30caps Keo Maria, 08/09/2010 - zide M.D. 05/21/2018 37.5-25mg Capsules Lisinopril 1 tab qd po 90tabs Keo Maria, 08/09/2010 - 10mg Tablets M.D. 05/21/2018 Vicodin 1-2 by mouth 30tabs Keo Maria, 08/09/2010 - 5-500mg Tablets every 4-6 hours M.D. 05/21/2018 and needed for pain Co qd nasal 1Mon Keo Maria, 08/09/2010 - 27.5mcg/[place] Suspension M.D. 08/09/2010 Methotrexate 6 tabs 1x per 24tabs Keo Maria, 08/09/2010 - 2.5mg Tablets week M.D. 05/21/2018 Folic Acid 1 po qd 30tabs Keo Maria, 08/09/2010 - 1mg Tablets M.D. 05/21/2018 Vitamin D po q month 1caps Keo Maria, 08/09/2010 - [id number] Capsules M.D. 05/21/2018 Prednisone 1 bid 60tabs Keo Maria, 08/09/2010 - 10mg Tablets M.D. 05/21/2018 Glucosamine Chondroitin po bid Unknown - Complex 05/21/2018 Capsules [place] 3 1 po qd. 30caps Unknown - 1000mg Capsules 05/21/2018 Eliquis 1 by mouth Unknown - 5mg Tablets twice a day 08/13/2018 Medications Administered in Office Medication SIG Qnty Indications Ordering Provider Date Depomedrol 40MG AYAN Minaya 02/02/2010 Injection Immunizations Description No Information Available Vital Signs Date Vital Result Comment 10/21/2018 10:23am Height 59 inches 4'11" Weight 173.00 lb Heart Rate 56 /min BP Systolic Sitting 126 mmHg left upper arm regular cuff BP Diastolic Sitting 72 mmHg left upper arm regular cuff Respiratory Rate 12 /min O2 % BldC Oximetry 96 % BMI (Body Mass Index) 34.9 kg/m2 10/21/2018 10:16am Height 59 inches 4'11" 08/14/2018 10:44am Height 59 inches 4'11" Weight 170.50 lb Heart Rate 60 /min BP Systolic Sitting 166 mmHg Lue reg cuff BP Diastolic Sitting 90 mmHg Lue reg cuff Respiratory Rate 16 /min O2 % BldC Oximetry 96 % On Ra BMI (Body Mass Index) 34.4 kg/m2 05/27/2018 1:36pm Height 59 inches 4'11" Weight 183.25 lb Heart Rate 68 /min BP Systolic Sitting 174 mmHg Lue reg cuff BP Diastolic Sitting 94 mmHg Lue reg cuff Respiratory Rate 14 /min O2 % BldC Oximetry 97 % On Ra BMI (Body Mass Index) 37.0 kg/m2 Neck Circumference in inches 14 05/22/2018 12:51pm Height 59 inches 4'11" Weight 185.00 lb with shoes Heart Rate 50 /min BP Systolic Sitting 140 mmHg Lue lg cuff BP Diastolic Sitting 80 mmHg Lue lg cuff BP Systolic Standing 138 mmHg Lue lg cuff BP Diastolic Standing 80 mmHg Lue lg cuff Respiratory Rate 16 /min BMI (Body Mass Index) 37.4 kg/m2 08/09/2010 12:02pm Height 59 inches 4'11" Weight 221.00 lb Heart Rate 88 /min BP Systolic 150 mmHg BP Diastolic 88 mmHg BMI (Body Mass Index) 44.6 kg/m2 Results Description No Information Available Procedures Date Code Description Status 07/29/2018 76839 Polysomnography Sleep Staging 4+ Parameters Completed 06/19/2018 04826 Sleep Study Unattended,HRT Rate,Oxygen Sat,Resp Completed Effort/Airflow 05/22/2018 86882 EKG Tracing & Interpretation Completed 03/06/2018 29120 EKG, Interpretation Only Completed 03/05/2018 82942 ECHO Transthorasic Realtime 2D W Doppler & Color Flow Hosp Completed 03/05/2018 87913 EKG, Interpretation Only Completed 03/05/2018 07994 Cardioversion Completed 03/04/2018 99302 EKG, Interpretation Only Completed 03/15/2010 42417 Rad Exam; Spine Lumbosacral Completed 02/02/2010 10356 Inject/Drain Joint/Bursa Major W/O US Completed Encounters Type Date Location Provider Dx Diagnosis Office Visit 08/14/2018 [facility] Brittany Quintana, G47.33 Obstructive sleep 11:00a [facility], RN, WATER RESOURCES PROJECT MANAGER-BC apnea (adult) [facility] (pediatric) Z68.34 Body mass index (BMI) 34.0-34.9, adult Office Visit 05/27/2018 2:00p [facility] Cecilia Coon, R06.83 [facility] [place] YIP R53.83 Other fatigue E66.09 Other obesity due to excess calories Z68.37 Body mass index (BMI) 37.0-37.9, adult Office Visit 05/22/2018 1:00p [facility] Edin Mata I48.0 Paroxysmal atrial Of [facility] Gupta M.D. fibrillation I42.1 Obstructive hypertrophic cardiomyopathy I11.0 Hypertensive heart disease with heart failure Office Visit 03/06/2018 10:50a [facility] I48.91 Unspecified atrial Cardiology Of [facility]obert[facility]obert fibrillation [place] I42.1 Obstructive hypertrophic cardiomyopathy I27.20 Pulmonary hypertension, unspecified Office Visit 03/06/2018 [facility] Eri Alvarez, I50.31 Acute diastolic 9:43a raul Snell M.D. (congestive) Hospitalists heart failure I48.91 Unspecified atrial fibrillation M06.9 Rheumatoid arthritis, unspecified Office Visit 03/05/2018 10:39a [facility] Edin Mata I48.91 Unspecified atrial Of [facility] Thierno Gupta fibrillation I42.1 Obstructive hypertrophic cardiomyopathy Office Visit 03/05/2018 [facility] Lanie Carrasco I50.9 Heart failure, 9:42a Assoc,pc Hillary, CUSTOMER SERVICE LEADER unspecified Hospitalists I48.91 Unspecified atrial fibrillation M06.9 Rheumatoid arthritis, unspecified I11.0 Hypertensive heart disease with heart failure Office Visit 03/04/2018 9:41a [facility] Constance I50.9 Heart failure, Assoc,pc Jeanette, DO unspecified Hospitalists I48.91 Unspecified atrial fibrillation E66.01 Morbid (severe) obesity due to excess calories Z68.41 Body mass index (BMI) 40.0-44.9, adult Office Visit 08/09/2010 11:40a Rheumatology Keo Maria, 714.0 Rheumatoid Services Of [place] Pa Arthritis V58.69 Medications Reconcilement Clerk (Current) Use Encounter Office Visit 05/20/2010 3:15p Nellie Crowley, 716.96 Arthropathy Services Of RPA-C Unspec Lower Leg C.M.A. 355.5 Tarsal Tunnel Syndrome Office Visit 04/22/2010 2:00p Nellie Rendon 355.5 Tarsal Tunnel Services Of Thierno Castillo Syndrome C.M.A. Office Visit 03/15/2010 1:30p Nellie Crowley 355.5 Tarsal Tunnel Services Of [facility] Syndrome C.M.A. Office Visit 02/02/2010 10:30a Orthopedic Carmen Crowley, 719.26 Synovitis Services Of [facility] Villonodular Lower C.M.A. Leg 715.96 Osteoarthrosis Unspec Genlzd Or Localized Lower Leg Office Visit 01/27/2010 [facility] Care[facility] Crowley, 715.96 Osteoarthrosis 1:30p Services Of RPA-C Unspec Genlzd Or C.M.A. Localized Lower Leg 719.46 Pain Joint Lower Leg Plan of Treatment Future Appointment(s):01/20/2019 10:00 am - Brittany Quintana DNP, RN, WATER RESOURCES PROJECT MANAGER-BC at [facility]10/21/2018 - Brittany Quintana DNP, RN, WATER RESOURCES PROJECT MANAGER- BCG.33 Obstructive sleep apnea (adult) (pediatric)Comments:Sleep Apnea - NPSG AHI 5.2/hour, tRDI 90%, sleep efficiency 47.7%, wt 183 #, BMI 37Follow up:3 monthsRecommendations:Continue PAP device, Benefitting and compliant with treatment. Cleaning Wipe off mask daily (baby wipe-no scent, or warm water) Clean mask, tubing, filter, and water chamber weekly in mild no scent dish soap and water. Hang to dry. If you have any sleepiness while driving you MUST avoid operating a vehicle or machinery. If you have difficulty with your equipment, or need to replace your mask or hoses, please contact your homecare agency. A weight change of 20 pounds or more may have an effect onyour equipment; if you are experiencing problems please call for an appointment. If you have any further questions, please call the [facility] at [phone].
[2018-11-18 12:02] VITALS: BP 168/58
--- NOTE | 2018-11-18 12:33 | UC ---
Lower Extremity/Ankle HPI - HPI Summary HPI Summary: 68-year-old female presents with complaints of bruising to her left lower leg with a tender "lump" for the past 3 weeks. No history of DVT, PE, or history of clotting disorder. Denies injury, fever, chills, chest pain, shortness of breath , calf pain, erythema, or edema. - History of Current Complaint Chief Complaint: UCLowerExtremity Stated Complaint: LT LEG LUMP AFTER BRUSE Time Seen by Provider: 11/18/18 12:28 Hx Obtained From: Patient Hx Last Menstrual Period: "years ago." Pain Intensity: 3 - Allergies/Home Medications Allergies/Adverse Reactions: Allergies Allergy/AdvReac Type Severity Reaction Status Date / Time No Known Allergies Allergy Verified 11/18/18 12:02 PMH/Surg Hx/FS Hx/Imm Hx - Additional Past Medical History Additional PMH: Rheumatoid arthritis Cardiovascular History: Hypertension, Congestive Heart Failure, Atrial Fibrillation Respiratory History: Asthma Other History Of: Negative For: HIV, Hepatitis B, Hepatitis C - Surgical History Surgical History: Yes Surgery Procedure, Year, and Place: bilat knee replacements left elbow replacement toe fusion - Family History Known Family History: Positive: Hypertension, Diabetes - Social History Occupation: Retired Lives: Alone Alcohol Use: Rare Substance Use Type: None Smoking Status (MU): Never Smoked Tobacco - Immunization History Most Recent Influenza Vaccination: 03/06/18 Most Recent Pneumonia Vaccination: 03/06/18 Review of Systems All Other Systems Reviewed And Are Negative: Yes Constitutional: Negative: Fever, Chills Skin: Positive: Bruising - See HPI Respiratory: Negative: Shortness Of Breath, Cough Cardiovascular: Negative: Palpitations, Chest Pain Gastrointestinal: Positive: Negative Genitourinary: Positive: Negative Musculoskeletal: Negative: Arthralgia, Calf Tenderness, Decreased ROM, Edema, Myalgia Neurological: Positive: Negative Is Patient Immunocompromised?: No Physical Exam - Summary Physical Exam Summary: GENERAL APPEARANCE: Alert and cooperative older adult female who appears to be in no acute distress. CARDIAC: Normal S1 and S2. No S3, S4 or murmurs. Rhythm is regular. There is no peripheral edema, cyanosis or pallor. Extremities are warm and well perfused. Capillary refill is less than 2 seconds. Peripheral pulses intact. LUNGS: Clear to auscultation without rales, rhonchi, wheezing or diminished breath sounds. ABDOMEN: Positive bowel sounds. Soft, nondistended, nontender. No guarding or rebound. No masses or hepatosplenomegally. MUSKULOSKELETAL: ROM intact to all extremities. No joint erythema or tenderness. Normal muscular development. Normal gait. EXTREMITIES: Area of ecchymosis approximately 4 cm in diamter noted to her medial left lower leg. There is a tender linear, rope-like, lesion that follows a superficial varicose vein located centrally within the area of ecchymosis. Calf supple and non-tender. No erythema. NEUROLOGICAL: Strength and sensation symmetric and intact to lower extremities. SKIN: Skin normal color, texture and turgor. Triage Information Reviewed: Yes Vital Signs: Initial Vital Signs Temp 98.3 F 11/18/18 11:57 Pulse 44 11/18/18 11:57 Resp 18 11/18/18 11:57 BP 168/58 11/18/18 11:57 Pulse Ox 97 11/18/18 11:57 Vital Signs Reviewed: Yes Lower Extremity Course/Dx - Course Course Of Treatment: 68-year-old female presents with complaints of bruising to her left lower leg with a tender "lump" for the past 3 weeks. No history of DVT, PE, or history of clotting disorder. Denies injury, fever, chills, chest pain, shortness of breath , calf pain, erythema, or edema. Afebrile. Hypertensive otherwise VSS. Patient had area of ecchymosis approximately 4 cm in diamter noted to her medial left lower leg, a tender linear, rope-like, lesion that follows a superficial varicose vein located centrally within the area of ecchymosis, supple and non- tender calf without erythema or edema and otherwise unremarkable exam. Discussed with patient that based on her history and exam I suspect she has a thrombophlebitis of a varicose vein although with the bruising cannot exclude the possibility of a resolving hematoma from an unknown injury. Recommending conservative treatment using OTC NSAIDs. She is to follow up with her PCP in 3- 5 days. Anticipatory guidance and warning symptoms were reviewed with the patient. Verbalizes understanding and agrees with POC. - Differential Dx/Diagnosis Differential Diagnosis/HQI/PQRI: Contusion, DVT, Phlebitis Provider Diagnosis: Thrombophlebitis of leg, left, superficial Discharge - Sign-Out/Discharge Documenting (check all that apply): Patient Departure All imaging exams completed and their final reports reviewed: No Studies - Discharge Plan Condition: Stable Disposition: HOME Patient Education Materials: Superficial Thrombophlebitis (ED) Referrals: Feliz Morse MD [Primary Care Provider] - 3 Days Additional Instructions: Based on your history and exam you appear to have a blood clot in a superficial blood vessel of the leg that is causing inflammation of the vein. These are not harmful and will typically resolve on their own. You may take on over the counter anti-inflammatory medication such as ibuprofen (Advil, Motrin) or naproxen (Aleve) according to directions as needed for pain. Follow up with your primary care provider in 3-5 days for recheck of symptoms. Seek immediate medical attention in the emergency room if you have increased pain, swelling or redness of the leg, chest pain, shortness of breath, or any worsening of symptoms. - Billing Disposition and Condition Condition: STABLE Disposition: Home
== END 2018-11-18 12:40 | disposition home or self-care (01) ==
LOC: UCEAST 11:44
DX: I80.02 Phlebitis and thrombophlebitis of superficial vessels of left lower extremity (principal); M06.9 Rheumatoid arthritis, unspecified; I50.9 Heart failure, unspecified; Z96.653 Presence of artificial knee joint, bilateral; Z96.622 Presence of left artificial elbow joint
CPT/HCPCS: 99211; G0463

== ENCOUNTER 2019-03-15 08:51 | Emergency (ER) | payer MEDICARE ==
--- NOTE | 2019-03-15 09:38 | ED ---
Lower Extremity - HPI Summary HPI Summary: Patient is a 68-year-old female who presents emergency department for left knee pain yesterday. The patient does not recall any falls or injuries. History of total left knee replacement several years ago. Patient states she is unable to bend the left knee secondary to severe pain. Denies fevers, chills. Symptoms are mild to moderate in severity. Moving left knee makes symptoms worse. Rest makes symptoms better. - History of Current Complaint Chief Complaint: EDExtremityLower Stated Complaint: LT KNEE PAIN PER PT Time Seen by Provider: 03/15/19 09:13 Hx Obtained From: Patient Hx Last Menstrual Period: "years ago." Pain Intensity: 0 - Allergies/Home Medications Allergies/Adverse Reactions: Allergies Allergy/AdvReac Type Severity Reaction Status Date / Time No Known Allergies Allergy Verified 03/15/19 09:01 Home Medications: Home Medications Amiodarone TAB* [Cordarone Tab*] 200 mg PO DAILY 03/15/19 [History Confirmed ] PMH/Surg Hx/FS Hx/Imm Hx Previously Healthy: Yes Endocrine/Hematology History: Denies: Hx Diabetes, Hx Thyroid Disease Cardiovascular History: Reports: Hx Hypertension, Other Cardiovascular Problems/ Disorders - heart murmur Denies: Hx Atrial Fibrillation, Hx Congestive Heart Failure, Hx Deep Vein Thrombosis, Hx Myocardial Infarction, Hx Pacemaker/ICD Respiratory History: Reports: Hx Asthma - She states that she has problems with allergies and asthma. On no Rx. Denies: Hx Chronic Obstructive Pulmonary Disease (COPD), Hx Lung Cancer, Hx Pneumonia, Hx Pulmonary Embolism GI History: Reports: Other GI Disorders - IBS Denies: Hx Gall Bladder Disease, Hx Gastrointestinal Bleed, Hx Ulcer, Hx Urosepsis History: Denies: Hx Kidney Stones, Hx Renal Disease Musculoskeletal History: Reports: Hx Arthritis, Hx Back Problems, Other Musculoskeletal History - degenerative disk disease Sensory History: Reports: Hx Contacts or Glasses Denies: Hx Hearing Aid Opthamlomology History: Reports: Hx Contacts or Glasses Neurological History: Denies: Hx Dementia, Hx Migraine, Hx Seizures, Hx Transient Ischemic Attacks (TIA) Psychiatric History: Denies: Hx Anxiety, Hx Depression, Hx Schizophrenia, Hx Bipolar Disorder - Surgical History Surgery Procedure, Year, and Place: bilat knee replacements left elbow replacement toe fusion Infectious Disease History: No Infectious Disease History: Reports: Hx of Known/Suspected MRSA - possible Denies: Hx Clostridium Difficile, Hx Hepatitis, Hx Human Immunodeficiency Virus (HIV), Hx Shingles, Hx Tuberculosis, Hx Known/Suspected VRE, Hx Known/ Suspected VRSA, History Other Infectious Disease, Traveled Outside the [place] in Last 30 Days - Family History Known Family History: Positive: Hypertension, Diabetes, Non-Contributory - Social History Occupation: Retired Lives: With Family Alcohol Use: Rare Substance Use Type: Reports: None Smoking Status (MU): Never Smoked Tobacco Review of Systems Constitutional: Negative Negative: Fever, Chills Positive: Other - left knee pain Skin: Negative Neurological: Negative Negative: Weakness, Paresthesia, Numbness All Other Systems Reviewed And Are Negative: Yes Physical Exam Triage Information Reviewed: Yes Vital Signs On Initial Exam: Initial Vitals Temp Pulse Resp BP Pulse Ox 97.5 F 54 16 169/89 97 03/15/19 08:55 03/15/19 08:55 03/15/19 08:55 03/15/19 08:55 03/15/19 08:55 Vital Signs Reviewed: Yes Appearance: Positive: Well-Appearing - Pt. sitting on bed in NAD. Family member present. Skin: Positive: Warm, Dry Head/Face: Positive: Normal Head/Face Inspection Eyes: Positive: Normal, EOMI Neck: Positive: Supple Musculoskeletal: Positive: Other - Good palpable left pedal pulse. Diffuse tenderness to anterior knee. No calf tenderness. Unable to flex knee secondary to pain. No overly erythema or increased warmth. Neurological: Positive: Normal, CN Intact II-III Psychiatric: Positive: Affect/Mood Appropriate Diagnostics - Vital Signs Vital Signs Temp Pulse Resp BP Pulse Ox 03/15/19 08:55 97.5 F 54 16 169/89 97 - Laboratory Result Diagrams: 03/15/19 09:46 03/15/19 09:46 Lab Statement: Any lab studies that have been ordered have been reviewed, and results considered in the medical decision making process. Lower Extremity Course/Dx - Course Course Of Treatment: Pt. presenting with left knee pain. Afebrile and well appearing. Pt. with too much pain to flex. Basic labs and xray obtained. Labs are unremarkable other than elevated CRP of 169. Knee xray negative for acute fingds per radiology. Concerned with pt.'s pain with flexion and elevated CRP with prosthetic joint. Case discussed with oncbirdie cedeno, Dr. Hernandez, who recommends joint aspiration to r/o infection. Case discussed with Dr. Simms. Bedside u.s only shows a small effusion. Pt. now able to flex. Dr. Simms feels risk of aspiration is higher than concern for septic joint. Dr. Simms discussed case with Dr. Hernandez. Will have pt. f.u in ortho. clinic on Sunday. Tylenol for pain as directed. To return to ER for fever, increased pain, redness, or if concerned. Pt. understands and agrees with plan. - Diagnoses Differential Diagnosis/HQI/PQRI: Positive: Cellulitis, DVT, Fracture (Closed), Infection, Sprain, Strain Provider Diagnoses: Knee pain Discharge ED - Sign-Out/Discharge Documenting (check all that apply): Patient Departure Patient Received Moderate/Deep Sedation with Procedure: No - Discharge Plan Condition: Good Disposition: HOME Patient Education Materials: Knee Pain (ED) Forms: *Work Release Referrals: Feliz Morse MD [Primary Care Provider] - Donavon Hernandez MD [Medical Doctor] - Additional Instructions: Call the orthopedic clinic on Sunday for a close followup appointment Ice intermittently Tylenol for pain as directed Return to ER for increased pain, fever, redness, or if concerned - Billing Disposition and Condition Condition: GOOD Disposition: Home ED Addendum Addendum: I evaluated Ms. Yost. His my clinical evaluation that this is very unlikely to be a septic joint. I think that the risk of performing a tap with the prosthesis is greater than missing a septic joint. I did recommend close follow -up.
[2019-03-15 09:51] LABS: ABS Lymphocytes 0.8 10^3/ul (1.0-4.8); ABS Monocytes 0.8 10^3/ul (0-0.8); ABS Neutrophils 6.4 10^3/ul (1.5-7.7); Eosinophil % 0.2 %; Hematocrit 48 % (35-47); Hemoglobin 16.2 g/dL (12.0-16.0); Lymphocyte % 10.3 %; Mean Corpuscular HGB Conc 34 g/dL (31-36); Mean Corpuscular Hemoglobin 31 pg (27-31); Mean Corpuscular Volume 90 fL (80-97); Platelet Count 123 10^3/uL (150-450); Red Blood Count 5.31 10^6 /uL (3.70-4.87); Red Cell Distribution Width 13 % (10-15)
--- OUTSIDE RECORDS SUMMARY | 2019-03-15 10:05 | XMS REPORT | Continuity of Care Document ---
:1950 External Reference #:[id number] Author Name Michaela Chiang Care Team Providers Name Role Phone Feliz Morse MD Primary Care Physician Unavailable Payers Date Identification Numbers Payment Provider Subscriber Policy Number: [id number] Medicare Blue Ppo Ariadna Yost PayID: [id number] [address] [address] [place] [address] Effective: 2017 Policy Number: [id number] Medicare Blue o Ariadna Yost Expires: 2018 PayID: [id number] [address] [address] [place] [address] Problems Active Problems Provider Date Decompensated cardiac [...] sleep apnea syndrome Brittany Quintana DNP, RN, EARLY EDUCATION TEACHER-BC Onset: Body mass index 30+ - obesity Brittany Quintana DNP, RN, EARLY EDUCATION TEACHER-BC Onset: 2018 Family History Date Family Member(s) Observation Comments Father Cancer Mother due to Pneumonia () Siblings None Social History Type Date Description Comments Sex Unknown Marital Status Lives With Daughter Lives With 1 cat 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 Tobacco Use Start: Unknown Never Smoked Cigarettes Tobacco Use Start: Unknown Secondhand smoke As a child, and an adult (father, ex-) Smoking Status Reviewed: 01/20/19 Secondhand smoke As a child, and an adult (father, ex-) ETOH Use Denies alcohol use Tobacco Use Start: Unknown Patient has never smoked Recreational Drug Use Denies Drug Use Exercise Type/Frequency Exercises regularly Exercise Type/Frequency Walks 3 times a week Allergies, Adverse Reactions, Alerts Description No Known Drug Allergies Medications Active Medications SIG Qnty Indications Ordering Provider Date Amiodarone HCL 1 by mouth every 90tabs Edin Mata Brand, 12/18/2018 100mg day M.D. Tablets Metoprolol Succinate 1 by mouth every Unknown ER day 25mg Tablets ER 24HR Metoprolol Succinate 1 by mouth every Unknown ER day 100mg Tablets ER 24HR Spironolactone/Hydroc 1 tablet po Unknown hlorothiazide daily 25-25mg Tablets Amlodipine Besylate 1 by mouth every Unknown day 2.5mg Tablets Multi Vitamin 1 by mouth every Unknown Tablets day History Medications Hydroxychloroquine Sulfate 2 tab by [...] qd nasal 1Mon Keo Maria, 08/09/2010 - 27.5mcg/[place] Suspension M.D. 08/09/2010 Methotrexate 6 tabs 1x per 24tabs Keo Maria, 08/09/2010 - 2.5mg Tablets week M.D. 05/21/2018 Folic Acid 1 po qd 30tabs Keo Maria, 08/09/2010 - 1mg Tablets M.D. 05/21/2018 Vitamin D po q month 1caps Keo Endo, 08/09/2010 - 92612Gqvd Capsules M.D. 05/21/2018 Prednisone 1 bid 60tabs Keo Endo, 08/09/2010 - 10mg Tablets M.D. 05/21/2018 Glucosamine Chondroitin po bid Unknown - Complex 05/21/2018 Capsules Foster 3 1 po qd. 30caps Unknown - 1000mg Capsules 05/21/2018 Eliquis 1 by mouth Unknown - 5mg Tablets twice a day 08/13/2018 Amiodarone HCL 1 by mouth Unknown - 200mg Tablets every day 12/18/2018 Medications Administered in Office Medication SIG Qnty Indications Ordering Provider Date Depomedrol 40MG AYAN Minaya 02/02/2010 Injection Vital Signs Date Vital Result Comment 01/20/2019 10:09am Height 59 inches 4'11" Weight 173.00 lb Heart Rate 52 /min BP Systolic Sitting 112 mmHg Lue reg cuff BP Diastolic Sitting 82 mmHg Lue reg cuff Respiratory Rate 18 /min O2 % BldC Oximetry 96 % On Ra BMI (Body Mass Index) 34.9 kg/m2 12/18/2018 9:50am Height 59 inches 4'11" Weight 172.00 lb Clothes/shoes Heart Rate 48 /min Apical BP Systolic Sitting 132 mmHg Lue reg cuff BP Diastolic Sitting 70 mmHg Lue reg cuff BP Systolic Standing 132 mmHg Lue reg cuff BP Diastolic Standing 70 mmHg Lue reg cuff BMI (Body Mass Index) 34.7 kg/m2 Ejection Fraction >65% Echo 03/05/2018 10/21/2018 10:23am Height 59 inches 4'11" Weight [...] mmHg BMI (Body Mass Index) 44.6 kg/m2 Procedures Date Code Description Status 12/18/2018 91340 EKG Tracing & Interpretation Completed 07/29/2018 60122 Polysomnography Sleep Staging 4+ Parameters Completed 06/19/2018 29041 Sleep Study Unattended,HRT Rate,Oxygen Sat,Resp Completed Effort/Airflow 05/22/2018 08216 EKG Tracing & Interpretation Completed 03/06/2018 46042 EKG, Interpretation Only Completed 03/05/2018 12987 ECHO Transthorasic Realtime 2D W Doppler & Color Flow Hosp Completed 03/05/2018 33699 EKG, Interpretation Only Completed 03/05/2018 01462 Cardioversion Completed 03/04/2018 62981 EKG, Interpretation Only Completed 03/15/2010 28225 Rad Exam; Spine Lumbosacral Completed 02/02/2010 98895 Inject/Drain Joint/Bursa Major W/O US Completed Encounters Type Date Location Provider Dx Diagnosis Office Visit 12/18/2018 [facility] Edin Mata I48.0 Paroxysmal atrial 10:30a Of Leonel Gupta M.D. fibrillation I42.1 Obstructive hypertrophic cardiomyopathy Office Visit 10/21/2018 [facility] Brittany G47.33 Obstructive sleep 10:30a Sleep Services Of JOHN Quintana, RN, apnea (adult) [facility]- (pediatric) Office Visit 08/14/2018 [facility] Brittany G47.33 Obstructive sleep 11:00a [facility] Of JOHN Quintana, RN, apnea (adult) [facility]- (pediatric) Z68.34 Body mass index (BMI) 34.0-34.9, adult Office Visit 05/27/2018 2:00p [facility] Cecilia Coon, R06.83 [facility] R53.83 Other fatigue E66.09 Other obesity due to excess calories Z68.37 Body mass index (BMI) 37.0-37.9, adult Office Visit 05/22/2018 1:00p [facility] Edin Mata I48.0 Paroxysmal atrial Of Leonel Gupta M.D. fibrillation I42.1 Obstructive hypertrophic cardiomyopathy I11.0 Hypertensive heart disease with heart failure Office Visit 03/06/2018 10:50a [facility]ni Harris I48.91 Unspecified atrial Cardiology Of M.DRobert fibrillation [facility] I42.1 Obstructive hypertrophic cardiomyopathy I27.20 Pulmonary hypertension, unspecified Office Visit 03/06/2018 [facility] Eri Alvarez, I50.31 Acute diastolic 9:43a Assraul alejandre M.D. (congestive) Hospitalists heart failure I48.91 Unspecified atrial fibrillation M06.9 Rheumatoid arthritis, unspecified Office Visit 03/05/2018 10:39a [facility] Edin Mata I48.91 Unspecified atrial Of Leonel Gupta M.D. fibrillation I42.1 Obstructive hypertrophic cardiomyopathy Office Visit 03/05/2018 [facility] Lanie Carrasco I50.9 Heart failure, 9:42a Assoc,raul Thornton NP unspecified Hospitalists I48.91 Unspecified atrial fibrillation M06.9 Rheumatoid arthritis, unspecified I11.0 Hypertensive heart disease with heart failure Office Visit 03/04/2018 9:41a [facility] [place] I50.9 Heart failure, Assoc,raul Reid DO unspecified Hospitalists I48.91 Unspecified atrial fibrillation E66.01 Morbid (severe) obesity due to excess calories Z68.41 Body mass index (BMI) 40.0-44.9, adult Office Visit 08/09/2010 11:40a Rheumatology Keo Maria, 714.0 Rheumatoid [facility] Thierno Arthritis V58.69 Medications Freight Clerk (Current) Use Encounter Office Visit 05/20/2010 3:15p Orthopedic Carmen Crowley, 716.96 Arthropathy Services Of [facility] Unspec Lower Leg C.M.A. 355.5 Tarsal Tunnel Syndrome Office Visit 04/22/2010 2:00p Orthopedic Justice 355.5 Tarsal Tunnel Services Of Thierno Castillo Syndrome C.M.A. Office Visit 03/15/2010 1:30p Orthopedic Carmen Crowley 355.5 Tarsal Tunnel Services Of [facility] Syndrome C.M.A. Office Visit 02/02/2010 10:30a Orthopedic Carmen Crowley, 719.26 Synovitis Services [facility] Villonodular Lower C.M.A. Leg 715.96 Osteoarthrosis Unspec Genlzd Or Localized Lower Leg Office Visit 01/27/2010 Nellie Crowley, 715.96 Osteoarthrosis 1:30p Services Of [facility] Unspec Genlzd Or C.M.A. Localized Lower Leg 719.46 Pain Joint Lower Leg Plan of Treatment Future Appointment(s):08/01/2019 10:45 am - Brittany Quintana DNP, RN, EARLY EDUCATION TEACHER-BC at [facility]01/20/2019 - Brittany Quintana DNP, RN, DIMITRIOS- BCG47.33 Obstructive sleep apnea (adult) (pediatric)Comments:Sleep Apnea - NPSG AHI 5.2/hour, tRDI 90%, sleep efficiency 47.7%, wt 183 #, BMI 37 On CPAP 5-10 AHI 2.3/hour, normalFollow up:6 monthsRecommendations:Continue PAP device, Benefitting and compliant with [...] experiencing problems please call for an appointment. Continue with weight loss efforts If you have any further questions, please call the [facility] at .
[2019-03-15 10:27] LABS: Albumin 4.1 g/dL (3.2-5.2); Albumin/Globulin Ratio 1.2 (1-3); BUN/Creatinine Ratio 15.3 (8-20); C Reactive Protein 169.06 mg/L (<8.01); Calcium 9.4 mg/dL (8.6-10.3); EGFR African American 43.9 (>60); EGFR Non-African American 36.3 (>60); Globulin 3.5 g/dL (2-4); Potassium 4.1 mmol/L (3.5-5.0); Total Protein 7.6 g/dL (6.4-8.9)
[2019-03-15] MEDS ORDERED: Lidocaine 1% MPF ** 5 ML VIAL INJ ONE (11:45)
[2019-03-15 13:24] VITALS: BP 126/71
== END 2019-03-15 13:25 | disposition home or self-care (01) ==
LOC: ED 08:51
DX: M25.562 Pain in left knee (principal); M85.88 Other specified disorders of bone density and structure, other site; Z96.652 Presence of left artificial knee joint; I10 Essential (primary) hypertension; J45.909 Unspecified asthma, uncomplicated; Z79.899 Other long term (current) drug therapy
CPT/HCPCS: 36415; 80053; 85025; 86140; 99282